=== PATIENT | female | born 1985 | race Caucasian/White ===

== ENCOUNTER 2017-08-09 03:44 | Emergency (ER) | payer BC, OTHER ==
[2017-08-09 04:15] VITALS: BP 106/70; PULSE 85; TEMP 98.2; BMI 23.8
[2017-08-09] MEDS ORDERED: IPRATROPIUM BR 0.02% 0.5 MG/2.5 ML VIAL.NEB. NEB ONE ×2 (05:24→05:33)
--- NOTE | 2017-08-09 05:25 | PDOC ---
History of Present Illness - General Chief Complaint: Sore Throat Stated Complaint: SOB/6 WKS Time Seen by Provider: 08/09/17 04:50 - History of Present Illness Initial Comments: 08/09/17 05:24 CHIEF COMPLAINT: cough, sob, asthma HISTORY OF PRESENT ILLNESS: 31 yo 6 weeks (by LMP) F presents to ED with sob and cough x 4 days. Patient states she has a history of asthma and did not use her albuterol inhaler because she's . She also complains of sore throat and losing her voice secondary to her persistent cough. She states her chest feels tight. She denies any fever, chills, nausea, vomiting, or diarrhea. PAST MEDICAL HISTORY: Denies past medical history FAMILY HISTORY: Denies SOCIAL HISTORY: Denies tobacco, alcohol, illicit drug use. SURGICAL HISTORY: Denies ALLERGIES: No known drug allergies REVIEW OF SYSTEMS General/Constitutional: Denies fever or chills. Denies weakness, weight change. HEENT: Denies change in vision. Denies ear pain or discharge. Denies sore throat. Cardiovascular: Denies chest pain. Respiratory: Cough x 4 days, chest tightness. Gastrointestinal: Denies nausea, vomiting, diarrhea or constipation. Denies rectal bleeding. Genitourinary: Denies dysuria, frequency, or change in urination. Musculoskeletal: Denies joint or muscle swelling or pain. Denies neck or back pain. Skin and breasts: Denies rash or easy bruising. Neurologic: Denies headache, vertigo, loss of consciousness, or loss of sensation. PHYSICAL EXAM General Appearance: Well-appearing, appropriately dressed. No apparent distress. HEENT: Hoarse voice. EOMI, PERRLA, normal ENT inspection, TMs normal, pharynx normal. No conjunctival pallor. No photophobia, scleral icterus. Respiratory/Chest: Lungs CTAB. No wheezing appreciated b/l. Cardiovascular: RRR. S1, S2. Gastrointestinal/Abdominal: Normal bowel sounds. Abdomen soft, non-distended. No tenderness or rebound tenderness. No organomegaly, pulsatile mass, guarding, hernia, hepatomegaly, splenomegaly. Musculoskeletal/Extremities: Normal inspection. FROM of all extremities, normal capillary refill. No tenderness to extremities, pedal edema, swelling, erythema or deformity. Integumentary: Appropriate color, dry, warm. No cyanosis, erythema, jaundice or rash Neurologic: ict trainer II-XII intact. Fully oriented, alert. Appropriate mood/affect. Motor strength 5/5. No appreciable EOM palsy, facial droop or sensory deficit. 08/10/17 14:39 Past History - Past Medical History Allergies/Adverse Reactions: Allergies Allergy/AdvReac Type Severity Reaction Status Date / Time No Known Allergies Allergy Verified 08/09/17 05:31 Home Medications: Ambulatory Orders Dextromethorphan HBr [Cough Control] 15 mg PO Q6H PRN #28 capsule 08/09/17 Ipratropium [place] [Atrovent Hfa] 1 - 2 puff IH QID PRN #1 inhaler 08/09/17 Asthma: Yes COPD: No - Suicide/Smoking/Psychosocial Hx Smoking History: Never smoked Have you smoked in the past 12 months: No Information on smoking cessation initiated: No Hx Alcohol Use: No Drug/Substance Use Hx: No Substance Use Type: None *Physical Exam - Vital Signs Last Vital Signs Temp Pulse Resp BP Pulse Ox 98.2 F 85 18 106/70 99 08/09/17 04:10 08/09/17 04:10 08/09/17 04:10 08/09/17 04:10 08/09/17 04:10 Medical Decision Making - Medical Decision Making 31 yo 6 weeks (by LMP) F presents to ED with sob and cough x 4 days. -Atrovent neb Atrovent inhaler and robitussin rx sent to pharm. Advised patient to take medication as prescribed and follow up with OB within the next 2-3 days. Advised patient of signs and symptoms for return to ED. Patient verbalized understanding and agrees to plan. *DC/Admit/Observation/Transfer Diagnosis at time of Disposition: Cough - Discharge Dispostion Disposition: HOME Condition at time of disposition: Stable Admit: No - Prescriptions Prescriptions: Dextromethorphan HBr [Cough Control] 15 mg PO Q6H PRN #28 capsule PRN Reason: Cough Ipratropium [place] [Atrovent Hfa] 1 - 2 puff IH QID PRN #1 inhaler PRN Reason: Shortness Of Breath - Referrals - Patient Instructions Printed Discharge Instructions: DI for Asthma -- Adult, DI for Cough -- Adult Additional Instructions: Please use medications as prescribed. Follow up with your OBGYN within the next 2-3 days. If you develop any new shortness of breath, palpitations, fever , chills, vomiting, diarrhea, or any new or worsening symptoms, please return to the ER. - Post Discharge Activity Forms/Work/School Notes: Back to Work
== END 2017-08-09 05:42 | disposition home or self-care (01) ==
LOC: JER 03:44
PROC: 3E0F7GC Introduction of Other Therapeutic Substance into Respiratory Tract, Via Natural or Artificial Opening (ICD-10-PCS; principal; 2017-08-09)
DX: O99.511 Diseases of the respiratory system complicating pregnancy, first trimester (principal); J45.909 Unspecified asthma, uncomplicated; Z3A.01 Less than 8 weeks gestation of pregnancy
CPT/HCPCS: 87070; 87430; 87804; 99281-25

== ENCOUNTER 2017-08-11 07:44 | Emergency (ER) | payer BC, OTHER ==
--- NOTE | 2017-08-11 08:04 | PDOC ---
History of Present Illness - General Chief Complaint: Vaginal Bleeding Stated Complaint: VAGINAL BLEEDING (7 WEEKS PREG) Time Seen by Provider: 08/11/17 08:02 - History of Present Illness Initial Comments: 08/11/17 08:27 The patient is a 31 year old 7 week female with a history of asthma who presents for evaluation of vaginal bleeding. The patient reports that she is 7 weeks by LMP and she follows with an accounts supervisor. She states that she has been having daily vaginal spotting throughout her entire . She noted some back pain yesterday evening and then experienced heavy vaginal bleeding early this morning prompting her presentation to the ED for evaluation. She states that her bleeding this morning is like her period. She denies fevers, chills, SOB, chest pain, abdominal pain, or changes with urination or bowel movements. Past History - Past Medical History Allergies/Adverse Reactions: Allergies Allergy/AdvReac Type Severity Reaction Status Date / Time No Known Allergies Allergy Verified 08/11/17 07:50 Home Medications: Ambulatory Orders Dextromethorphan HBr [Cough Control] 15 mg PO Q6H PRN #28 capsule 08/09/17 Ipratropium [place] [Atrovent Hfa] 1 - 2 puff IH QID PRN #1 inhaler 08/09/17 Asthma: Yes COPD: No DVT: No - Suicide/Smoking/Psychosocial Hx Smoking History: Never smoked Have you smoked in the past 12 months: No Hx Alcohol Use: No Drug/Substance Use Hx: No Substance Use Type: None Review of Systems - Review of Systems Comments:: 08/11/17 08:31 Constitutional: No fevers, chills, fatigue, malaise HEENT: No Rhinorrhea, nasal congestion, visual changes Cardiovascular: No chest pain, syncope, palpitations, lightheadedness Respiratory: No Cough, SOB, Hemoptysis, Gastrointestinal: No Abdominal pain, Nausea, Vomiting, Constipation, Diarrhea, Melena Genitourinary: Vaginal bleeding. No Dysuria, Frequency, Urgency, Hesitancy, Hematuria, Flank pain Musculoskeletal: No Myalgia, arthralgia Skin: No rashes, bruising, pallor Neurologic: No Headache, Dizziness, Numbness, Weakness, or Tingling Psychiatric: No Hallucinations. No SI or HI *Physical Exam - Vital Signs Last Vital Signs Temp Pulse Resp BP Pulse Ox 99.0 F 85 20 118/74 99 08/11/17 07:45 08/11/17 07:45 08/11/17 07:45 08/11/17 07:45 08/11/17 07:45 - Physical Exam Comments: 08/11/17 08:31 General Appearance: Nourished. No Apparent Distress HEENT: EOMI, PRANAV. Neck: No Cervical Lymphadenopathy Respiratory/Chest: Lungs Clear, Normal Breath Sounds. No Crackles, Rales, Rhonchi, Wheezing Cardiovascular: Regular Rhythm, Regular Rate. No Murmur, Gallops, Rubs Gastrointestinal/Abdominal: Normal Bowel Sounds, Soft. No Guarding, Rebound, Tenderness Pelvic Exam: Normal external exam. Blood in the vaginal vault with possible uterine contents. Closed Cervical Os. No CMT or adenexal tenderness. Musculoskeletal: No CVA Tenderness Extremity: Normal Capillary Refill Integumentary: Normal Color, Dry, Warm Neurologic: Fully Oriented, Alert, Normal Mood/Affect, Normal Response, ED Treatment Course - LABORATORY CBC & Chemistry Diagram: 08/11/17 07:55 08/11/17 08:20 Medical Decision Making - Medical Decision Making 08/11/17 08:35 The patient is a 31 year old 7 week female with a history of asthma who presents for evaluation of vaginal bleeding. Differential includes but is not limited to: Missed , Spontaneous , complete , infectious, metabolic derangement. Given the patient's physical exam as well as history of sudden heavy vaginal bleeding, we are concerned for a spontaneous . We will send a cbc, cmp, coags, type and screen, beta-quant, ua to evaluate further and obtain a transvaginal US. We will continue to monitor and reassess. 08/11/17 12:05 CBC, cmp, coags, ua, were unremarkable. Beta-quant was [id number] US demonstrated a yolk sac without any identified pole concerning for a missed as read by our radiologist. We discussed the results with the patient and the need to represent to the ED or her accounts supervisor for a repeat US and beta-quant. We are comfortable discharging the patient home at this time. The patient voiced understanding and is agreeable with the plan. *DC/Admit/Observation/Transfer Diagnosis at time of Disposition: Miscarriage - Discharge Dispostion Disposition: HOME Condition at time of disposition: Good Admit: No - Referrals - Patient Instructions Printed Discharge Instructions: DI for Miscarriage Additional Instructions: Please return to the ER if you experience concerning or worsening symptoms including worsening bleeding or pain or fevers. You were seen in the ER for vaginal bleeding. Your lab results were normal, however your ultrasound results showed that you are likely experiencing a miscarriage. You will need to return to the ER to have a repeat ultrasound and blood test in 2 days. You should also call your accounts supervisor doctor within 1-2 days to discuss your ER visit. - Post Discharge Activity
[2017-08-11 08:21] VITALS: TEMP 99; BMI 23.8
[2017-08-11 08:32] LABS: URINE APPEARANCE SLCLOUDY; URINE BILIRUBIN NEGATIVE (NEGATIVE); URINE BLOOD 3+ (NEGATIVE); URINE COLOR LTYELLOW; URINE GLUCOSE (UA) NEGATIVE (NEGATIVE); URINE KETONE NEGATIVE (NEGATIVE); URINE NITRITE NEGATIVE (NEGATIVE); URINE PROTEIN NEGATIVE (NEGATIVE); URINE UROBILINOGEN NEGATIVE mg/dL (0.2-1.0)
[2017-08-11 08:46] LABS: URINE MUCUS RARE; URINE RBC 14; URINE WBC 8
--- NOTE | 2017-08-11 08:48 | PDOC ---
Attending Attestation - Resident Resident Name: Jose R Anne - ED Attending Attestation I have performed the following: I have examined & evaluated the patient, The case was reviewed & discussed with the resident, I agree w/resident's findings & plan, Exceptions are as noted - HPI HPI: 08/11/17 08:46 31-year-old female with no past medical history, approximately 7 weeks presents with vaginal bleeding. The patient has been having episode of spotting once a week since conception and has noted since yesterday until today that she has had significant amount of vaginal bleeding. Denies lightheadedness , chest pain, shortness of breath. Because of worsening bleeding, patient came into the ED for further evaluation. - Physicial Exam PE: 08/11/17 08:47 GENERAL: NAD, AAOx3 ABD: soft, nd, nt PELVIC: as per resident exam - Medical Decision Making 08/11/17 08:47 Vital Signs Temp Pulse Resp BP Pulse Ox 99.0 F 85 20 118/74 99 08/11/17 07:45 08/11/17 07:45 08/11/17 07:45 08/11/17 07:45 08/11/17 07:45 Patient has had prior ultrasounds that were reportedly with intrauterine . We'll obtain a beta hCG, type and screen, transvaginal ultrasound to rule out miscarriage. If Rh factor is negative, we'll give rogham. Obtain CBC. Reassess. 08/11/17 11:54 CBC, BMP 08/11/17 07:55 08/11/17 08:20 CMP Sodium 138 mmol/L (136-145) 08/11/17 08:20 Potassium 4.3 mmol/L (3.5-5.1) 08/11/17 08:20 Chloride 106 mmol/L (98-107) 08/11/17 08:20 Carbon Dioxide 27 mmol/L (21-32) 08/11/17 08:20 Anion Gap 5 (8-16) L 08/11/17 08:20 BUN 14 mg/dL (7-18) 08/11/17 08:20 Creatinine 0.5 mg/dL (0.55-1.02) L 08/11/17 08:20 Creat Clearance w eGFR > 60 (>60) 08/11/17 08:20 Random Glucose 96 mg/dL (74-106) 08/11/17 08:20 Calcium 8.4 mg/dL (8.5-10.1) L 08/11/17 08:20 Total Bilirubin 0.3 mg/dL (0.2-1.0) 08/11/17 08:20 AST 21 U/L (15-37) 08/11/17 08:20 ALT 40 U/L (12-78) 08/11/17 08:20 Alkaline Phosphatase 47 U/L (45-117) 08/11/17 08:20 Total Protein 6.8 g/dl (6.4-8.2) 08/11/17 08:20 Albumin 3.6 g/dl (3.4-5.0) 08/11/17 08:20 Beta HCG, Quant 18788.2 mIU/ml 08/11/17 08:20 Urine Test Results Urine Color Ltyellow 08/11/17 08:10 Urine Appearance Slcloudy 08/11/17 08:10 Urine pH 5.0 (5.0-8.0) 08/11/17 08:10 Ur Specific [place] 1.020 (1.001-1.035) 08/11/17 08:10 Urine Protein Negative (NEGATIVE) 08/11/17 08:10 Urine Glucose (UA) Negative (NEGATIVE) 08/11/17 08:10 Urine Ketones Negative (NEGATIVE) 08/11/17 08:10 Urine Blood 3+ (NEGATIVE) H 08/11/17 08:10 Urine Nitrite Negative (NEGATIVE) 08/11/17 08:10 Urine Bilirubin Negative (NEGATIVE) 08/11/17 08:10 Ur Epithelial Cells Rare /hpf (FEW) 08/11/17 08:10 Urine Mucus Rare 08/11/17 08:10 Ultrasound: IUP 6 wks 4 days, missed . Bleeding precautions given. Will need to have the patient return to the ER or to her doctor in 2 days for repeat beta HCG.
[2017-08-11 09:07] LABS: ALBUMIN 3.6 g/dl (3.4-5.0); ANION GAP 5 (8-16); BILIRUBIN,TOTAL 0.3 mg/dL (0.2-1.0); CALCIUM 8.4 mg/dL (8.5-10.1); CO2 27 mmol/L (21-32); CREATININE 0.5 mg/dL (0.55-1.02); GLUCOSE,RANDOM 96 mg/dL (74-106); SGOT/AST 21 U/L (15-37); SGPT/ALT 40 U/L (12-78); TOT PROT 6.8 g/dl (6.4-8.2)
[2017-08-11 09:10] LABS: BASOPHIL 0.3 % (0-2.0); EOSINOPHIL 2.5 % (0-4.5); MCH 31.3 pg (25.7-33.7); MCHC 33.8 g/dl (32.0-36.0); MEAN CELL VOLUME 92.5 fl (80-96); MEAN PLT VOLUME 9.3 fl (7.5-11.1); NEUTROPHILS 64.4 % (42.8-82.8); PLATELET COUNT 175 K/MM3 (134-434); WHITE BLOOD COUNT 6.4 K/mm3 (4.0-10.0)
[2017-08-11 09:21] LABS: INR 0.96 (0.82-1.09); PROTHROMBIN TIME (PATIENT) 10.9 SEC (9.98-11.88)
[2017-08-11 09:22] LABS: ALK PHOS 47 U/L (45-117)
[2017-08-11 12:57] VITALS: BP 114/73; PULSE 86
[2017-08-11 17:10] LABS: URINE LEUK ESTERASE Negative (NEGATIVE)
== END 2017-08-11 12:57 | disposition home or self-care (01) ==
LOC: JER 07:44
DX: O02.1 Missed abortion (principal); Z3A.01 Less than 8 weeks gestation of pregnancy
CPT/HCPCS: 36415; 76817-TC; 80053; 81003; 81015; 84702; 84703; 85025; 85610; 86850; 86900; 86901; 99281-25